=== PATIENT | male | born 1960 | race Caucasian/White ===

== ENCOUNTER 2022-06-10 16:05 | Observation (INO) ==
[2022-06-10] MEDS ORDERED: 0.9 % Sodium Chloride 1,000 ML IVC ONE (16:52)
[2022-06-10 18:30] LABS: Calcium 8.8 mg/dL (8.6-10.3); Magnesium 1.9 mg/dL (1.6-2.6); Potassium 4.5 mEq/L (3.5-5.1)
[2022-06-10] MEDS ORDERED: cefTRIAXone 1,000 MG in 0.9 % Sodium Chloride Mini Bag 100 ML IVPB ONE (18:34)
[2022-06-10 19:09] LABS: Adenovirus Not Detected (Not Detect); Bordetella Pertussis Not Detected (Not Detect); Chlamydophila pneumoniae Not Detected (Not Detect); Coronavirus 229E Not Detected (Not Detect); Coronavirus HKU1 Not Detected (Not Detect); Coronavirus NL63 Not Detected (Not Detect); Coronavirus OC43 Not Detected (Not Detect); Human Metapneumovirus Not Detected (Not Detect); Human Rhinovirus/Enterovirus Not Detected (Not Detect); Influenza A Subtype 2009 H1 Not Detected (Not Detect); Influenza B Not Detected (Not Detect); Mycoplasma pneumoniae Not Detected (Not Detect); Parainfluenza Virus 1 Not Detected (Not Detect); Parainfluenza Virus 2 Not Detected (Not Detect); Parainfluenza Virus 3 Not Detected (Not Detect); Parainfluenza Virus 4 Not Detected (Not Detect); Respiratory Syncytial Virus Not Detected (Not Detect); SARS-CoV-2 Not Detected (Not Detect)
[2022-06-10 19:26] LABS: Thyroid Stimulating Hormone 4.262 mcIU/mL (0.340-5.600)
[2022-06-10 21:03] LABS: Bilirubin,Urine Negative (Negative); Blood,Urine Negative (Negative); Clarity,Urine Clear (Clear); Color,Urine Yellow (Yellow); Glucose,Urine (UA) 30 mg/dL (Normal); Hyaline Casts,Urine Few per lpf (None Seen); Ketones,Urine Negative (Negative); Leukocyte Esterase,Urine Negative (Negative); Mucus,Urine Few per lpf (None-Few); Nitrite,Urine Negative (Negative); Protein,Urine >=300 mg/dL (Neg-Trace); RBC,Urine 0-3 per hpf (0-3); Specific Gravity,Urine 1.019 (1.010-1.025); Squamous Epithelial Cell,Urine Few per hpf (None-Few); Urobilinogen,Urine Normal (Normal); WBC,Urine 0-3 per hpf (0-3)
[2022-06-10] MEDS ORDERED: Naloxone 0.4 MG/ML INJ IVP PRN (21:27)
[2022-06-10] MEDS ORDERED: Ondansetron 4 MG/2 ML VIAL IVP PRN (21:27)
[2022-06-10] MEDS: Melatonin 3 MG TABLET PO PRN (23:14)
[2022-06-10] MEDS: 0.9 % Sodium Chloride 1,000 ML IVC SCH (23:19)
[2022-06-11] MEDS ORDERED: Ipratropium/Albuterol Neb 3 ML IH PRN
[2022-06-11] MEDS ORDERED: Acetaminophen 325 MG TABLET PO PRN (00:44)
[2022-06-11] MEDS ORDERED: polyethylene glycoL 3350 17 GM POWD.PACK PO PRN (00:44)
[2022-06-11] MEDS: Apixaban 5 MG TABLET PO SCH ×3 (01:14→20:07)
[2022-06-11] MEDS: 0.9 % Sodium Chloride 1,000 ML IVC SCH ×3 (06:18→23:50)
[2022-06-11 06:24] LABS: Hematocrit 35.5 % (37.5-50.1); Hemoglobin 11.4 g/dL (12.9-16.9); Mean Corpuscular HGB Conc 32.1 g/dL (31.6-35.5); Mean Corpuscular Volume 90.3 fL (83.0-100.0); Mean Platelet Volume 9.2 fL (9.4-12.4); Platelet Count 232 K/mcL (140-400); Red Blood Count 3.93 M/mcL (4.19-5.50); Red Cell Distribution Width 13.3 % (11.5-14.5); White Blood Count 12.8 K/mcL (4.3-11.1)
[2022-06-11 06:47] LABS: BUN/Creatinine Ratio 17 (6-26); Blood Urea Nitrogen 14 mg/dL (8-23); Calcium 8.7 mg/dL (8.6-10.3); Carbon Dioxide 26 mEq/L (23-29); Chloride 106 mEq/L (98-107); Glucose 96 mg/dL (70-105); Osmolality,Calculated 280 (280-300); Potassium 4.4 mEq/L (3.5-5.1); Sodium 135 mEq/L (136-145); Troponin I < 0.03 ng/mL (< 0.04)
[2022-06-11] MEDS: allopurinoL 100 MG TABLET PO SCH (08:38)
[2022-06-11] MEDS: Azithromycin 500 MG in 0.9 % Sodium Chloride 250 ML IVPB SCH (08:39)
[2022-06-11] MEDS ORDERED: *HR* Dextrose 50 % in Water (Syg) 50 ML SYRINGE IVP PRN (16:45)
[2022-06-11] MEDS ORDERED: D5% in Water 1,000 ML IVC PRN (16:45)
[2022-06-11] MEDS ORDERED: Dextrose Gel 15 GM/37.5 ML TUBE PO PRN ×2 (16:45)
[2022-06-11] MEDS ORDERED: cefTRIAXone 2,000 MG in 0.9 % Sodium Chloride 20 ML IVP SCH (20:00)
[2022-06-11] MEDS ORDERED: Insulin LISPRO 300 UNITS/3 ML VIAL SUBQ SCH (21:00)
[2022-06-12] MEDS: Melatonin 3 MG TABLET PO PRN (00:04)
[2022-06-12 02:31] VITALS: O2SAT 95
[2022-06-12] MEDS ORDERED: Insulin LISPRO 300 UNITS/3 ML VIAL SUBQ SCH (07:30)
[2022-06-12 07:58] VITALS: BP 125/64; PULSE 59
[2022-06-12] MEDS ORDERED: *HR* Promethazine 25 MG/ML VIAL IM PRN (08:06)
[2022-06-12] MEDS: 0.9 % Sodium Chloride 1,000 ML IVC SCH (08:49)
[2022-06-12] MEDS: Apixaban 5 MG TABLET PO SCH (08:49)
[2022-06-12] MEDS: allopurinoL 100 MG TABLET PO SCH (08:49)
[2022-06-12] MEDS: Azithromycin 500 MG in 0.9 % Sodium Chloride 250 ML IVPB SCH (08:50)
[2022-06-12 10:44] VITALS: TEMP 97.8
== END 2022-06-12 11:32 | disposition home or self-care (01) ==
LOC: EMEROOARM 16:05 → 2ANU 16:05
PROVIDERS: ADMIT Internal Medicine; ATTEND Internal Medicine